=== PATIENT | female | born 1990 | race Caucasian/White ===

== ENCOUNTER 2016-08-30 16:32 | Emergency (ER) | payer BC ==
[~2016-08-30] VITALS: Ht 152.4 cm; Wt 52.1 kg
[2016-08-30 16:36] VITALS: TEMP 36.9; Ht 152.4 cm; Wt 52.1 kg
--- NOTE | 2016-08-30 17:02 | EMERGENCY ROOM VISIT NOTE ---
History Report prepared by Ruth: Kimberly Pleitez Under the Supervision of: Dr. Deshawn Whipple M.D. First contact with patient: 16:40 Chief Complaint: ED VAG BLEEDING Stated Complaint: 7 WEEK PREG, BLEEDING History of Present Illness The patient is a 26 year old female who presents to the Emergency Room with complaints of an episode of vaginal bleeding starting last night. She states that she is about seven weeks and has an OB-POWER REACTOR SUPERVISOR appointment scheduled in five days. She states that this is her second and she has a three year old at home. She states that she determined this from a home test , she has been experiencing nausea. She came to the ED today because she started a little vaginal bleeding with clots and when she called her OB-POWER REACTOR SUPERVISOR, they suggested she come in. She notes that a few weeks before getting , she had an IUD removed. The patient complains of light cramping. The patient denies any previous miscarriages. She notes that she has had mastitis in the past. Source of History: patient Onset: last night Position: other (vagina) Timing: other (episode) Associated Symptoms: + nausea Note: The patient complains of mild cramping. The patient denies any previous miscarriages. Review of Systems See HPI for pertinent positives & negatives. A total of 10 systems reviewed and were otherwise negative. Family History No pertinent family history Social History Smoking Status: Never Smoker Housing Status: lives with family Current/Historical Medications Scheduled Multivit/Min/Iron/Fol Ac/Pren ( Vitamin), 1 TAB PO DAILY Allergies Coded Allergies: No Known Allergies (Unverified , 08/30/16) Physical Exam Vital Signs Date Time Temp Pulse Resp B/P Pulse Ox O2 Delivery O2 Flow Rate FiO2 08/30/16 18:33 90 16 114/73 100 Room Air 08/30/16 16:36 36.9 111 18 127/80 100 Room Air Physical Exam GENERAL: Patient is in no acute distress. HEENT: No acute trauma, normocephalic atraumatic, mucous membranes moist, no nasal congestion, no scleral icterus. NECK: No stridor, no adenopathy, no meningismus, trachea is midline. LUNGS: Clear to auscultation bilaterally, no wheeze, no rhonchi, breath sounds equal. HEART: Without murmurs gallops or rubs, regular rate and rhythm. ABDOMEN: Soft, nontender, bowel sounds positive, no hernias, no peritonitis. EXTREMITIES: No cyanosis or edema, full range of motion of all the joints without pain or difficulty, no signs for acute trauma. NEUROLOGIC: Oriented x 3, no acute motor or sensory deficits, no focal weakness. SKIN: No rash, no jaundice, no diaphoresis. Medical Decision & Procedures ER Provider Diagnostic Interpretation: X ray results and stated below per my interpretation and radiologist interpretation. Other radiology results and stated below per my review and radiologist interpretation: Limited ultrasound LIMITED (US) CLINICAL HISTORY: EVALUATE OB-POWER REACTOR SUPERVISOR/VAGINAL BLEEDING bleeding TECHNIQUE: Ultrasound COMPARISON STUDY: None FINDINGS: Single, viable intrauterine . Estimated gestational age 7 weeks 5 days. A heartbeat is confirmed at 167 bpm. Small subchorionic bleed measuring 1.5 x 1.0 cm. Maternal cervix is closed. IMPRESSION: 1. Single, viable intrauterine of approximate 7 weeks 5 days gestational age. 2. Small subchorionic bleed. 3. The maternal cervix is closed. Electronically signed by: Jorge Luis Rendon M.D. 08/30/2016 6:30 PM Dictated Date/Time: 08/30/2016 6:29 PM Laboratory Results 08/30/16 16:56 Test 08/30/16 16:46 08/30/16 16:56 Urine Color YELLOW Urine Appearance CLEAR (CLEAR) Urine pH 6.5 (4.5-7.5) Urine Specific [place] 1.006 (1.000-1.030) Urine Protein NEG (NEG) Urine Glucose (UA) NEG (NEG) Urine Ketones NEG (NEG) Urine Occult Blood NEG (NEG) Urine Nitrite NEG (NEG) Urine Bilirubin NEG (NEG) Urine Urobilinogen NEG (NEG) Urine Leukocyte Esterase NEG (NEG) Red Blood Count 4.39 M/uL (4.2-5.4) Mean Corpuscular Volume 88.4 fL (80-100) Mean Corpuscular Hemoglobin 31.4 pg (25-34) Mean Corpuscular Hemoglobin Concent 35.6 g/dl (32-36) RDW Standard Deviation 37.8 fL (36.4-46.3) RDW Coefficient of Variation 11.8 % (11.5-14.5) Mean Platelet Volume 9.8 fL (7.4-10.4) Human Chorionic Gonadotropin, Quant 713872 mIU/mL Laboratory results reviewed by me. ED Course 1640: The patient was evaluated in room C11. A complete history and physical exam was performed. 183: I discussed the patient's exam findings and results. She decided she would like to use [facility] for OB-POWER REACTOR SUPERVISOR care. 1846: Discussed the patient's case with Dr. Kaye. He agrees that the patient is fine to go home. He notes she should have pelvic reset and follow up in the office. 185: Reevaluated the patient. Discussed results and discharge instructions: She verbalized understanding and agreement. The patient is ready for discharge. Medical Decision Differential Diagnoses include ectopic , vaginal bleeding in a normal , vaginal tear, miscarriage. There is no leukocytosis or concerning anemia. Quantitative beta hCG is elevated consistent with a several week . Blood type is O+, there is no need for RhoGAM. Urinalysis does not show evidence for infection. Pelvic ultrasound shows a healthy intrauterine , a subchorionic bleed was noted. The patient is having minimal vaginal bleeding and no pain. I did discuss the case with the on-call OB doctor. There is no need for a pelvic exam. Follow- up in the office in a few days was suggested. The patient was told to avoid sex and to practice pelvic rest. She will return for heavier bleeding or severe pain. Consults Time Called: 1840 Consulting Physician: Dr. Boo Kaye Returned Call: 184 Discussed the patient's case with Dr. Kaye. He agrees that the patient is fine to go home. He notes she should have pelvic reset and follow up in the office. Impression Primary Impression: Additional Impressions: Vaginal bleeding Subchorionic hemorrhage Scribe Attestation The scribe's documentation has been prepared under my direction and personally reviewed by me in its entirety. I confirm that the note above accurately reflects all work, treatment, procedures, and medical decision making performed by me. Departure Information Dispostion Home / Self-Care Referrals No Doctor, Assigned (PCP) Forms HOME CARE DOCUMENTATION FORM, IMPORTANT VISIT INFORMATION, WORK / SCHOOL INSTRUCTIONS Patient Instructions [facility] Additional Instructions pelvic rest no sex or lifting call and set up reference library assistant followup appt return for worsening pain or heavy bleeding Problem Qualifiers
[2016-08-30 17:13] LABS: HEMATOCRIT 38.8 % (37-47); MEAN CELL VOLUME 88.4 fL (80-100); MEAN CORPUSCULAR HEMOGLOBIN 31.4 pg (25-34); MEAN CORPUSCULAR HGB CONC 35.6 g/dl (32-36); MEAN PLATELET VOLUME 9.8 fL (7.4-10.4); PLATELET COUNT 247 K/uL (130-400); RED BLOOD COUNT 4.39 M/uL (4.2-5.4); WHITE BLOOD COUNT 8.31 K/uL (4.8-10.8)
[2016-08-30] MEDS ORDERED: PRENTAB26 PO (17:14)
[2016-08-30 17:17] LABS: URINE APPEARANCE CLEAR (CLEAR); URINE BILIRUBIN NEG (NEG); URINE COLOR YELLOW; URINE NITRITE NEG (NEG); URINE PH 6.5 (4.5-7.5); URINE SPECIFIC GRAVITY 1.006 (1.000-1.030); UROBILINOGEN NEG (NEG); ZZUR CULT IF INDIC CLEAN CATCH NO
[2016-08-30 17:28] LABS: MANUAL MICROSCOPIC REQUIRED? NO; REVIEW REQ? NO
--- NOTE | 2016-08-30 18:32 | DIAGNOSTIC IMAGING REPORT ---
Limited ultrasound LIMITED (US) CLINICAL HISTORY: EVALUATE OB-NURSING CLERK/VAGINAL BLEEDING bleeding TECHNIQUE: Ultrasound COMPARISON STUDY: None FINDINGS: Single, viable intrauterine . Estimated gestational age 7 weeks 5 days. A heartbeat is confirmed at 167 bpm. Small subchorionic bleed measuring 1.5 x 1.0 cm. Maternal cervix is closed. IMPRESSION: 1. Single, viable intrauterine of approximate 7 weeks 5 days gestational age. 2. Small subchorionic bleed. 3. The maternal cervix is closed. Electronically signed by: Jorge Luis Rendon M.D. 08/30/2016 6:30 PM Dictated Date/Time: 08/30/2016 6:29 PM
[2016-08-30 18:33] VITALS: BP 114/73; PULSE 90; O2SAT 100
--- NOTE | 2016-08-31 08:47 | DIAGNOSTIC IMAGING REPORT ---
Limited ultrasound LIMITED (US) CLINICAL HISTORY: EVALUATE OB-WRAPPER CASER/VAGINAL BLEEDING bleeding TECHNIQUE: Ultrasound COMPARISON STUDY: None FINDINGS: Single, viable intrauterine . Estimated gestational age 7 weeks 5 days. A heartbeat is confirmed at 167 bpm. Small subchorionic bleed measuring 1.5 x 1.0 cm. Maternal cervix is closed. IMPRESSION: 1. Single, viable intrauterine of approximate 7 weeks 5 days gestational age. 2. Small subchorionic bleed. 3. The maternal cervix is closed. Electronically signed by: Jorge Luis Rendon M.D. 08/30/2016 6:30 PM Dictated Date/Time: 08/30/2016 6:29 PM
== END 2016-08-30 19:04 | disposition home or self-care (01) ==
LOC: C.EDB 16:33 → C.EDC 19:04
DX: O20.8 Other hemorrhage in early pregnancy (principal)

== ENCOUNTER 2017-04-15 21:53 | Inpatient (IN) | payer BC ==
[~2017-04-15] VITALS: Ht 152.4 cm; Wt 65.0 kg
[~2017-04-15 21:53] MED LIST: PRENTAB26 PO
[2017-04-15] MEDS ORDERED: LACTATED RINGER'S 1000ML 1,000 ML IV PRN (22:33)
[2017-04-15] MEDS ORDERED: D5W AND LACTATED RINGERS 1,000 ML IV SCH (22:45)
[2017-04-15] MEDS ORDERED: LACTATED RINGER'S 1000ML 500 ML IV PRN (22:49)
[2017-04-15 22:58] LABS: HEMATOCRIT 31.1 % (37-47); MEAN CELL VOLUME 92.3 fL (80-100); MEAN CORPUSCULAR HEMOGLOBIN 32.3 pg (25-34); MEAN PLATELET VOLUME 10.5 fL (7.4-10.4); PLATELET COUNT 143 K/uL (130-400); RED BLOOD COUNT 3.37 M/uL (4.2-5.4); WHITE BLOOD COUNT 10.53 K/uL (4.8-10.8)
[2017-04-15] MEDS ORDERED: OXYTOCIN 30 UNITS/500ML NSS IV PRN (23:00)
[2017-04-15 23:01] VITALS: Ht 152.4 cm; Wt 65.0 kg
[2017-04-15 23:21] LABS: INR 0.9 (0.9-1.1); PARTIAL THROMBOPLASTIN RATIO 0.9; PROTHROMBIN TIME (PATIENT) 9.3 SECONDS (9.0-12.0)
[2017-04-16] MEDS ORDERED: EpHEDrine SULFATE INJ 50 MG/ML AMP ONE (03:51)
[2017-04-16] MEDS ORDERED: BUPIVACAINE 0.25% 30 ML VIAL ONE (03:51)
[2017-04-16] MEDS ORDERED: FENTANYL 2MCG/ML ROPIV 1.25MG/ML 100ML BAG EPI ONE (03:52)
[2017-04-16] MEDS ORDERED: FENTANYL CITRATE INJ 50 MCG/1 ML 2 ML VIAL ONE (03:52)
[2017-04-16] MEDS ORDERED: LACTATED RINGER'S 1000ML 500 ML IV PRN ×2 (04:55→10:57)
[2017-04-16] MEDS ORDERED: NALOXONE HCL INJ 1 MG in SODIUM CHLORIDE 0.9% 1000ML 1,000 ML IV PRN ×4 (04:55)
[2017-04-16] MEDS ORDERED: ONDANSETRON INJ 2 MG/ML 2 ML VIAL IV PRN (05:00)
[2017-04-16] MEDS ORDERED: DiphenhydrAMINE HCL 50 MG/ML VIAL IV PRN (05:00)
[2017-04-16] MEDS ORDERED: PROMETHAZINE HCL INJ 25 MG in SODIUM CHLORIDE 0.9% 50ML 50 ML IV PRN (05:00)
[2017-04-16] MEDS ORDERED: NALBUPHINE HCL INJ 10 MG/ML AMP IV PRN (05:00)
[2017-04-16] MEDS ORDERED: NALOXONE HCL INJ 0.4 MG/1 ML VIAL/CARP IV PRN (05:00)
[2017-04-16] MEDS ORDERED: EpHEDrine SULFATE INJ 50 MG/ML AMP IV PRN (05:00)
[2017-04-16] MEDS: FENTANYL 2MCG/ML ROPIV 1.25MG/ML 100ML BAG EPI PRN ×2 (07:09→12:26)
[2017-04-16] MEDS ORDERED: OXYTOCIN 30 UNITS/500ML NSS IV PRN ×2 (11:00→14:45)
[2017-04-16] MEDS ORDERED: OXYCODONE/ACETAMINOPHEN 5-325 TAB PO PRN (14:45)
[2017-04-16] MEDS ORDERED: ACETAMINOPHEN/CODEINE 300/30MG TAB PO PRN ×2 (14:45)
[2017-04-16] MEDS ORDERED: HYDROCORTISONE ACETATE 25 MG SUPP PR PRN (14:45)
[2017-04-16] MEDS ORDERED: LANOLIN OINT EXT PRN ×2 (14:45)
[2017-04-16] MEDS ORDERED: SUPERCREAM 0.870 % 15GM JAR EXT PRN (14:45)
[2017-04-16] MEDS ORDERED: BENZOCAINE 20% AER SPR 82.5 GM CAN EXT PRN (14:45)
--- NOTE | 2017-04-16 14:55 | DELIVERY SUMMARY ---
DATE OF OPERATION: 04/16/2017 DELIVERY NOTE The patient delivered a live female in left occiput anterior presentation. There was loose nuchal cord which was easily reduced. There was also body cord around the left leg. was delivered and placed on mother's abdomen. It was known that the patient had meconium. Pediatrics was present at delivery. Cord gas was obtained as well as cord blood. The baby's weight is pending. Apgars 8 and 9. Placenta was spontaneously delivered. Inspection of the placenta showed stained placenta. Inspection of the perineum showed no lacerations or tears. There is good hemostasis. Estimated blood loss is 400 mL. Baby and mother are doing well in recovery. All instruments are removed from the vagina and accounted for x2 including retractors and sponges. I attest to the content of the Intraoperative Record and any orders documented therein. Any exception s are noted below.
--- NOTE | 2017-04-16 15:32 | Anesthesia Procedure Note ---
Anesthesia Epidural Removal Nt Date & Time Apr 16, 2017 at 15:31 Vital Signs Pain Intensity: 7.0 Notes Mental Status: alert / awake / arousable, participated in evaluation Nausea / Vomiting: adequately controlled Pain: adequately controlled Airway Patency, RR, SpO2: stable & adequate BP & HR: stable & adequate Hydration State: stable & adequate Neuraxial Anesthesia: was administered Anesthetic Complications: no major complications apparent, pt satisfied with anesthetic care Epidural: removed without complications, with tip intact
[2017-04-16] MEDS: IBUPROFEN 600 MG TAB PO PRN ×2 (17:43→22:41)
[2017-04-16 17:45] VITALS: BP 107/73; PULSE 102; TEMP 36.7
[2017-04-16 19:15] VITALS: BP 102/65; PULSE 81; TEMP 36.7; O2SAT 97
[2017-04-16] MEDS: DOCUSATE SODIUM 100 MG CAP PO SCH (19:26)
[2017-04-16] MEDS: ACETAMINOPHEN 325 MG TAB PO PRN (19:27)
[2017-04-16 23:50] VITALS: BP 99/57; PULSE 76; TEMP 36.7; O2SAT 98
[2017-04-17 04:35] VITALS: BP 101/60; PULSE 82; TEMP 36.6; O2SAT 98
[2017-04-17] MEDS: IBUPROFEN 600 MG TAB PO PRN ×2 (04:37→12:23)
[2017-04-17 07:45] VITALS: BP 104/73; PULSE 84; TEMP 36.5; O2SAT 98
[2017-04-17] MEDS: DOCUSATE SODIUM 100 MG CAP PO SCH (07:45)
[2017-04-17] MEDS: ACETAMINOPHEN 325 MG TAB PO PRN (07:46)
[2017-04-17] MEDS ORDERED: FERROUS SULFATE 325 MG TAB PO SCH (08:00)
[2017-04-17] MEDS ORDERED: PRENATAL VITAMIN TAB PO SCH (08:00)
--- NOTE | 2017-04-17 08:23 | OB/GYN Progress Note ---
SHIPPING SUPPORT CLERK Progress Note Date of Service: Apr 17, 2017. Patient is seen and examined. She feels well, no complaints. Likes to be discharged today Ambulating without dizziness Voiding without difficulty Tolerating regular diet with out N&V Bleeding is minimal No fever/ chills/ CP/ SOB/ N&V/ Leg pain Breast feeding without problems Date Time Temp Pulse Resp B/P (MAP) Pulse Ox O2 Delivery O2 Flow Rate FiO2 04/17/17 07:45 36.5 84 20 104/73 (83) 98 Room Air 04/17/17 04:35 36.6 82 16 101/60 (74) 98 Room Air 04/16/17 23:50 36.7 76 16 99/57 (71) 98 Room Air 04/16/17 23:50 Room Air 04/16/17 19:15 36.7 81 18 102/65 (77) 97 Room Air 04/16/17 17:45 36.7 102 18 107/73 (84) Room Air 04/16/17 17:45 Room Air Last 24 Hours Test 04/17/17 08:11 PE: General: Alert, orientedx3, NAD Abd: soft, NT, fundus firm, below Umbilicus Perineum intact, Lochia rubra minimal Ext; NT, no edema AP: 26 yo s/p , ppd# 1 VSS Afebrile doing well, desires d/c today will check h&h Continue routine care All questions were answered Instructions were given when to call D/C home after 24 hours
--- NOTE | 2017-04-17 08:24 | Discharge Instructions ---
Discharge Instructions Date of Service Apr 17, 2017. Admission Reason for Admission: Check Rupture Discharge Discharge Diagnosis / Problem: Discharge Goals Goal(s): Routine recovery after delivery Medications Continue Dispensed Medications: lansinoh Activity Recommendations Activity Limitations: as noted below ACTIVITY RECOMMENDATIONS: * Gradual return to full activity over the next 2-3 weeks. * No lifting - nothing heavier than baby over the next 2-3 weeks. * Do not engage in vigorous exercise, sexual activity or sports until cleared by your physician. * Do not drive or operate any motorized equipment until cleared by your physician. * You may shower/bathe daily. BREAST CARE: If you are not breast feeding: * Wear a supportive bra 24 hours a day for one to two weeks. * Avoid stimulating your breasts and nipples as much as possible during the first few weeks after delivery. * When taking a shower, have the warm water hit your back, not breasts. * When your breasts feel full, apply ice packs. Usually three to four times a day helps ease the discomfort. * Take a mild pain medication (Tylenol/Motrin) when you are uncomfortable. If breast feeding: * Use breast milk to lubricate nipples. Lansinoh cream may be used for sore nipples. You do not need to remove cream prior to breast feeding. If using a different brand of cream, check the label for directions regarding removal of cream prior to nursing. * Wear a supportive bra. * If having problems with breasts or breast feeding, call a remediation bioanalytics consultant or your health care provider. EPISIOTOMY CARE: After delivery, if you have an episiotomy (stitches), the following steps will ease discomfort and aid healing. * For the first 24 hours after delivery, place ice packs next to your episiotomy to help reduce swelling. * After the first 24 hour-period, sitz baths, either portable or in the tub, are suggested. A shower with a shower arm sprayed over the episiotomy may be comforting. * Deepali care should be done after each voiding and bowel movement. Squirt warm water from a plastic bottle over the perineum (region of the body between the anus and urinary opening) and pat dry. * Use Dermoplast to ease discomfort. Shake container. [place] directly over the episiotomy. * Place a Tucks on a clean sanitary pad next to your episiotomy. OVER THE COUNTER MEDICATION: * For discomfort or pain, you may use Acetaminophen (Tylenol), Ibuprofen (Advil ), or Naproxen (Aleve) following the package directions. * For constipation you may use Colace following the package directions. SPECIAL CARE INSTRUCTIONS: When you are discharged from the hospital, it is important for you to follow the instructions listed below: * During the first week at home, you should be able to care for yourself and your baby. In addition, the usual light household activities are encouraged. * Limit your activities to the way you feel. Do not try to clean the house or move furniture. Be sensible. * If you actively engage in sports and have done so up until the time of your delivery, you may resume these activities as soon as you feel able. This may take up to one month or even longer. Use good judgment. * Continue to take your vitamins for at least six weeks after the of your baby. * Your diet need not be limited unless you were on a special diet before your delivery. Breast-feeding mothers need around 2500 calories per day and at least 64-80 ounces of fluid per day (8 to 10 glasses). * You should eat foods from the four major food groups. Crash diets or fad diets are to be avoided. Eating lean meats, fresh fruits and vegetables, low-fat dairy products, high fiber foods and a regular exercise program, will help you get back to your pre- weight without putting your health at risk. * Constipation is sometimes a problem after delivery. Take a mild laxative as needed. If breast feeding, Milk of Magnesia is acceptable to use. You may use a suppository or Fleets enema if no episiotomy. * A daily shower or tub bath is suggested. Be sure to thoroughly and gently dry the perineum. * A bloody vaginal discharge will usually continue until around four weeks post . A small amount of bleeding may continue for as long as six weeks. Vaginal discharge changes from the bright red bleeding after delivery to pink then brownish and finally yellowish-pink before becoming white and disappearing. * Bleeding may increase with activity. Your first period may come in 4-8 weeks. If you are breast feeding, your period may be delayed even longer. * [employer] (sex) can begin whenever both you and your partner feel comfortable and do not have any form of genital infection. It is recommended that you wait until after your return appointment and discuss with your physician. If you have questions, please talk to your health care practitioner. A condom should be used to prevent infection and . * Foreplay, gentle intercourse and lubrication is very important the first several times to prevent pain. A water-based lubricant such as K-Y jelly or Astroglide may be used. * Tampons may be used six weeks after delivery. * Douching should be avoided for 6 weeks after delivery. * If you have RH negative blood and your baby is RH positive, you will receive RHOGAM by injection prior to discharge. The nurse will give you a card to keep with you that has the date and place that you received RHOGAM after delivery. * During your care, you had a Rubella screen done to check for the presence of rubella antibodies in your blood. If your test was negative, you will receive a Rubella vaccine prior to discharge. This vaccine may cause a fever, soreness at the injection site and flu-like symptoms. If these symptoms persist, notify your health care practitioner. is not advised for three months after a Rubella vaccine. There is a higher chance of having a baby with defects if conceived within three months of getting the vaccine. * If you were discharged 24 hours from delivery or before 48 hours: Visiting nurses will come to your home 48 hours after discharge to assess you and your baby. The visiting nurse will meet with you while you are in the hospital to arrange a time and get directions to your home. * Verbalizes understanding of car seat law as reviewed with patient nursing. * Car Seat hand-out given and reviewed with patient by nursing. * Shaken baby information reviewed with patient by nursing. Call you doctor if: * Heavy bleeding (saturating several pads an hour) or passing clots the size of your fist. * A fever >101 degrees F (38.3 degrees C) on two occasions four hours apart and/or chills. * Unusual pain in the pelvic or vaginal areas. * "Baby Blues" lasting longer than two weeks. If you have any questions or concerns, call your health care practitioner at . FOLLOW-UP VISIT: * Please call the office at to schedule a 6 week examination. It is important you keep this appointment. * It is important for you to make arrangements for either yearly or twice yearly check-ups thereafter. . Current Hospital Diet Patient's current hospital diet: Regular OB Diet Discharge Diet Recommended Diet: Regular Diet Pending Studies Studies pending at discharge: no Medical Emergencies . Who to Call and When: Medical Emergencies: If at any time you feel your situation is an emergency, please call 911 immediately. . Non-Emergent Contact Non-Emergency issues call your: Specialist Call Non-Emergent contact if: temperature is above 100.5, your pain is not controlled, your pain is worsening, you have any medication questions . . "Provider Documentation" section prepared by Pascale Kearney. . VTE Core Measure Inpt VTE Proph given/why not?: Treatment not indicated
[2017-04-17 08:45] LABS: HEMATOCRIT 30.6 % (37-47)
[2017-04-17 11:18] VITALS: BP 99/56; PULSE 82; TEMP 36.6; O2SAT 97
[2017-04-17 16:00] VITALS: BP_DIAS 56; PULSE 82; TEMP 36.6
[2017-04-17] MEDS ORDERED: BISACODYL 5 MG TABEC PO SCH (20:00)
[2017-04-18] MEDS ORDERED: BISACODYL 10 MG SUPP PR PRN (07:00)
== END 2017-04-17 16:07 | disposition home or self-care (01) | DRG 775 ==
LOC: C.OPB 21:53 → C.LD 21:53 → C.OPB 22:36 → C.OBG 04-16 17:34
PROVIDERS: ADMIT Obstetrics & Gynecology; ATTEND Obstetrics & Gynecology
PROC: 10E0XZZ Delivery of Products of Conception, External Approach (ICD-10-PCS; principal; 2017-04-16)
DX: O48.0 Post-term pregnancy (principal); Z3A.40 40 weeks gestation of pregnancy; O69.82X0 Labor and delivery complicated by other cord entanglement, without compression, not applicable or unspecified; O77.0 Labor and delivery complicated by meconium in amniotic fluid; Z37.0 Single live birth

== ENCOUNTER 2020-12-29 05:19 | Inpatient (IN) ==
--- NOTE | 2020-12-27 14:49 | Anesthesiology Consultation ---
Date of Service December 27, 2020 Assessment & Plan (1) Encounter for pre-operative examination: Chart Review Chart Review: Acceptable Risk for Surgery and Patient NOT seen in Pre Admission Testing Consults Requested none History Surgery Operation Date: 12/30/20 09:00 Proposed Procedures p Section in LD - Alek Kamara MD Height/Weight Height: 5 ft Weight: 63.503 kg Allergies Allergy/AdvReac Type Severity Reaction Status Date / Time codeine AdvReac Mild nausea/vomi Verified 12/27/20 08:07 tting Medications Home Medications Medication Instructions Recorded Confirmed Last Taken [id number]-tgh-Ct-[id number] 1 mg 1 tab PO QAM 12/27/20 12/27/20 Unknown tablet Past Medical History Medical History Asthma as child no problems since age 13 In vitro fertilization surrogate -- baby is breech and she is not sure who will be in room. it may be both fathers or one father. Past Surgical History Surgical History History of lumpectomy of right breast Social History Smoking Status: Never smoker Do You Dip or Chew Tobacco: No Hx Alcohol Use: No Hx Substance Use: No substance use type: does not use
[2020-12-29] MEDS ORDERED: AZITHROMYCIN 500 MG in DEXTROSE 5% 250 ML IV STA (05:43)
--- NOTE | 2020-12-29 05:58 | History & Physical Report ---
Date of Service December 29, 2020 Assessment & Plan (1) Spontaneous rupture of amniotic membranes: Plan: 30-year-old -0-0-2 at 39 weeks of gestation, breech presentation, spontaneous rupture of membranes, active labor, Vital signs stable afebrile, GBS positive, Plan to admit, IV fluids, CBC and primary . Patient understand the risks and benefits and signed an informed consent. All questions were answered. (2) Labor presentation, breech: (3) Active labor at term: Admission and Anticipated Discharge Date Admission Date: December 29, 2020 History of Present Illness Chief Complaint: Leaking and contractions Primary Care Provider: NO PCP Patient is a 30-year-old -0-0-2 at 39 weeks of gestation who was originally scheduled for primary for breech presentation today. She woke up at 2:30 AM with contractions they got more regular and painful and then she felt small gush of fluid in the bathroom around 4:30 AM. Contraction get more regular and painful and she presented to labor and delivery. She denies vaginal bleeding, fever chills, nausea vomiting, headaches, change in her vision, Covid symptoms. She reports good movements. Her has been complicated by, 1 IVF , surrogate , 2 breech presentation, 3 GBS positive Allergies Allergy/AdvReac Type Severity Reaction Status Date / Time codeine AdvReac Mild nausea/vomi Verified 12/27/20 08:07 tting Home Medications Medication Instructions Recorded Confirmed Type eksioqbl-gor-Ly-FA 1 mg 1 tab PO QAM 12/27/20 12/27/20 History tablet Patient History Medical History Asthma as child no problems since age 13 In vitro fertilization surrogate -- baby is breech and she is not sure who will be in room. it may be both fathers or one father. Surgical History History of lumpectomy of right breast Social History Smoking Status: Never smoker Second Hand Exposure: No; Do You Dip or Chew Tobacco: No; Tobacco Cessation Education Requested by Patient: No Hx Alcohol Use: No Hx Substance Use: No Preferred Language: [place] Communication Ability: Effective Lining [place]er Required: No Beliefs That Will Affect Care: None Current Living Situation: Spouse and Family Other Information That Helps Us Care for You: No Feels Safe at Home: Yes Safety Concerns: Feels Safe At This Time Assistive Devices: None OB History 2 full-term 's in 2013 and 2017, no complications WINDOW CLEANER History No history of STDs, no history of chlamydia, gonorrhea nor genital herpes Review of Systems as per Subjective / HPI Physical Exam Constitutional: well developed, + acute distress (With contractions) and + thin Gastrointestinal (Abdomen): Inspection/Auscultation: abdomen normal to inspection and + abdomen distended (Gravid) Bedside ultrasound is confirmed by myself, breech presentation, heart rate 150s Genitourinary: normal external appearance OB Exam Abdomen: + breech Manual OB Exam: + cervical dilation 3 cm, + cervical effacement 80%, + station - 2 and + amniotic fluid clear and nitrazine positive (Speculum exam was done gross rupture was seen) OB Exam Monitor Tracing: + external uterine monitor used and + category I Results & Data ([facility]) Vital Signs (Past 12 Hours) Vital Signs Pulse BP 12/29/20 05:26 78 130/88 Code Status & VTE Plan VTE Prophylaxis Plan VTE Prophylaxis will be ordered: No
[2020-12-29] MEDS ORDERED: CITRIC ACID/SODIUM CITRATE 15 ML UDC PO SCH (06:00)
[2020-12-29] MEDS ORDERED: ceFAZolin 2,000 MG in SYRINGE 0 ML IV SCH (06:00)
[2020-12-29] MEDS ORDERED: LACTATED RINGER'S 1,000 ML IV SCH ×2 (06:00→08:15)
[2020-12-29] MEDS ORDERED: MoRPHine SULFATE PF 1 MG/ML 10 ML AMP/VIAL ONE (06:10)
[2020-12-29] MEDS ORDERED: fentaNYL citrate 100 MCG/2 ML VIAL ONE (06:10)
[2020-12-29] MEDS ORDERED: OXYTOCIN 10 UNITS/ML VIAL ONE (06:10)
[2020-12-29 06:31] LABS: Basophils # (auto) 0.01 K/uL (0-0.2); Basophils % (auto) 0.1 %; Eosinophils # (auto) 0.02 K/uL (0-0.5); Eosinophils % (auto) 0.2 %; Hematocrit (blood only) 37.4 % (37-47); Hemoglobin 12.9 g/dL (12.0-16.0); Immature Granulocytes # (auto) 0.04 K/uL (0.00-0.02); Immature Granulocytes % (auto) 0.4 %; Lymphocytes # (auto) 1.52 K/uL (1.2-3.4); Lymphocytes % (auto) 14.6 %; Mean Corpuscular Hemoglobin 31.2 pg (25-34); Mean Corpuscular Volume 90.3 fL (80-100); Mean Platelet Volume 10.6 fL (7.4-10.4); Monocytes # (auto) 0.64 K/uL (0.11-0.59); Monocytes % (auto) 6.2 %; Neutrophils # (auto) 8.15 K/uL (1.4-6.5); Neutrophils % (auto) 78.5 %; Platelet Count 241 K/uL (130-400); RDW Coefficient of Variation 12.1 % (11.5-14.5); RDW Standard Deviation 39.3 fL (36.4-46.3); Red Blood Count 4.14 M/uL (4.2-5.4); White Blood Count 10.38 K/uL (4.8-10.8)
[2020-12-29 06:32] LABS: Mean Corpuscular Hgb Conc 34.5 g/dL (32-36)
[2020-12-29] MEDS ORDERED: PHENYLEPHRINE 100MCG/ML 5ML SYR ONE (07:03)
[2020-12-29] MEDS ORDERED: NALOXONE HCL 0.08 MG in SYRINGE 1.8 ML IV PRN (07:04)
[2020-12-29] MEDS ORDERED: NALOXONE HCL 0.4 MG/1 ML VIAL/CARP IV PRN (07:04)
[2020-12-29] MEDS ORDERED: ePHEDrine sulfate 50 MG/ML AMP IV PRN (07:04)
[2020-12-29] MEDS ORDERED: ONDANSETRON INJ 2 MG/ML 2 ML VIAL IV PRN (07:04)
[2020-12-29] MEDS ORDERED: NALOXONE HCL 1 MG in SODIUM CHLORIDE 0.9% 1000ML 1,000 ML IV PRN (07:04)
[2020-12-29] MEDS ORDERED: LACTATED RINGER'S 500 ML IV PRN (07:04)
[2020-12-29] MEDS ORDERED: NALBUPHINE HCL INJ 10 MG/ML AMP IV PRN (07:04)
[2020-12-29] MEDS ORDERED: MoRPHine SULFATE PF 1 MG/ML 10 ML AMP/VIAL INT SPINAL ONE (07:04)
[2020-12-29] MEDS ORDERED: diphenhydrAMINE 50 MG/ML VIAL IV PRN (07:04)
[2020-12-29] MEDS ORDERED: NO NARCOTICS OR SEDATIVES SCH (07:15)
[2020-12-29] MEDS ORDERED: SODIUM CHLORIDE 0.9% 1000ML 1,000 ML IV SCH (07:15)
[2020-12-29] MEDS ORDERED: ONDANSETRON INJ 2 MG/ML 2 ML VIAL ONE (07:27)
--- NOTE | 2020-12-29 08:10 | Anesthesiology Progress Note ---
Date of Service December 29, 2020 Anesthesia Post Procedure Vital Signs Vital Signs: Temp Pulse Resp BP Pulse Ox 12/29/20 08:04 81 100 12/29/20 08:03 81 115/66 12/29/20 06:18 36.6 C 12/29/20 05:56 18 12/29/20 05:34 18 12/29/20 05:26 78 130/88 Transfer of Care Handoff Completed per policy Notes Mental Status: alert / awake / arousable Nausea / Vomiting: adequately controlled Pain: adequately controlled Airway Patency, RR, SpO2: stable & adequate BP & HR: stable & adequate Hydration State: stable & adequate Neuraxial Anesthesia: was administered and sensory block is resolving Anesthetic Complications: no major complications apparent
[2020-12-29] MEDS ORDERED: DIPHTHERIA/TETANUS/PERTUSSIS 0.5 ML SYR/VIAL IM ONE (08:15)
[2020-12-29] MEDS ORDERED: SUPERCREAM 0.870% 15 GM JAR EXT PRN (08:15)
[2020-12-29] MEDS ORDERED: SENNA 8.6 MG TAB PO PRN (08:15)
[2020-12-29] MEDS ORDERED: HYDROCORTISONE ACETATE 25 MG SUPP PR PRN (08:15)
[2020-12-29] MEDS ORDERED: MAGNESIUM HYDROXIDE SUSP 30 ML UDC PO PRN (08:15)
[2020-12-29] MEDS ORDERED: MEASLES, MUMPS & RUBELLA VIRUS VIAL SQ ONE (08:15)
[2020-12-29] MEDS ORDERED: BENZOCAINE 20% AER SPR 82.5 GM CAN EXT PRN (08:15)
--- NOTE | 2020-12-29 08:15 | Post Operative Brief Note ---
Immediate Post Op Note v1 Date of Surgery December 29, 2020 Pre & Post Diagnosis Operation Date: 12/29/20 08:15 <No data on this case meets the specified criteria> Breech presentation, SROM, in labor I identified the patient and participated in the time-out.: Yes Procedure Operation Date: 12/29/20 08:15 <No data on this case meets the specified criteria> Primary Csection Surgeon Pascale Kearney MD Sewing Machine Operator Plastic Zipper CAL Reeves Estimated Blood Loss 500 Findings Consistent with Post-Op Diagnosis Anesthesia Type Spinal Complications none
[2020-12-29] MEDS: KETOROLAC 30 MG/ML VIAL IV PRN ×2 (08:17→16:10)
[2020-12-29 08:47] LABS: Base Excess Cord Arterial Bld 4.2 mEq/L (-9-1.8); CO2 Cord Arterial Blood 38 mmHg (39.1-73.5); HCO3 Cord Arterial Blood 28 mmol/L (19.7-28.5); PO2 Cord Arterial Blood 123 mmHg (4.1-31.7); pH Cord Arterial Blood 7.48 (7.1-7.38)
[2020-12-29 08:48] LABS: Oxygen Sat Cord Arterial Blood < 60.0 % (<60)
[2020-12-29] MEDS: OXYTOCIN 20 UNITS in LACTATED RINGER'S 1,000 ML IV SCH ×2 (09:51→17:46)
--- NOTE | 2020-12-29 10:19 | Operative Report (OR) ---
DATE OF SURGERY: 12/29/2020 PREOPERATIVE DIAGNOSES: The patient is a 30-year-old 3, para 2-0-0-2, at 39 weeks of gestation, presenting to labor and delivery with spontaneous rupture of membrane, contractions, in labor and breech presentation. POSTOPERATIVE DIAGNOSES: The patient is a 30-year-old 3, para 2-0-0-2, at 39 weeks of gestation, presenting to labor and delivery with spontaneous rupture of membrane, contractions, in labor and breech presentation. PROCEDURE: Primary low transverse with Pfannenstiel skin incision and delivery of breech . SURGEON: Pascale Kearney MD. GARMENT FINISHER: CAL Reeves. ESTIMATED BLOOD LOSS: 500 mL. DRAIN: Moore 100 ml clear urine. ANESTHESIA: Spinal. ANESTHESIOLOGIST: Dr. Galindo. COMPLICATIONS: None. FINDINGS: Baby was a viable female delivered in lucinda breech position. Apgars were 8/9, weight is 2968 gr. Maternal findings: Normal uterus, fallopian tubes, and ovaries. DESCRIPTION OF PROCEDURE: The patient was taken to the operating room where spinal anesthesia was given without difficulty. She was placed in dorsal supine position with a leftward tilt. She was prepared and draped in the usual sterile fashion. Pfannenstiel skin incision was made and carried through to the underlying layer of fascia with the Bovie. Fascia was incised in the midline and incision was extended laterally with the help of Prado scissors. Lower aspect of the fascial incision was grasped with 2 Farzaneh clamps, elevated and the underlying rectus muscles were dissected off sharply with Prado scissors. Upper aspect of the fascial incision was then grasped with 2 Farzaneh clamps, elevated and the underlying rectus muscles were dissected off sharply with Prado scissors. Rectus muscles were in the midline. Peritoneum was entered bluntly with fingers. Peritoneal incision was extended superiorly and inferiorly with good visualization of the bladder. A bladder blade was inserted. Vesicouterine peritoneum was identified, grasped with pickups, entered sharply with Metzenbaum scissors. Bladder flap was created digitally and bladder blade was reinserted. Lower uterine segment was incised in a transverse fashion. Incision was extended laterally with the help of fingers. Membranes were ruptured. Clear fluid was obtained and the baby's buttocks were delivered and then legs and then body and arms in flexion position and then head without difficulty. Mouth and nose were suctioned. Cord was clamped x2 and cut. Baby was handed off to the waiting pediatric team. Cord blood was obtained and then cord blood was collected in a special collection bag per patient request. Placenta was delivered manually as intact and complete. Uterus was exteriorized and cleared of all clots and debris. The uterine incision was repaired with 0 Vicryl in a running locked fashion. Second imbricating layer was placed with 0 Vicryl in a running locked fashion. Excellent hemostasis was achieved. Uterus was returned to the abdomen. Pelvis was irrigated using warm normal saline and suctioned. Incision was checked to be hemostatic. Parietal peritoneum was reapproximated with 3-0 Vicryl in a running fashion. The muscle layer was reapproximated with the same suture in a running fashion. The muscle layer and under the fascia were hemostatic. Rectus fascia was reapproximated with 0 Vicryl in a running fashion. Subcuticular fat tissue was brought together with 3-0 Vicryl in a running fashion. Skin was closed with 4-0 Monocryl in a subcuticular fashion. The patient tolerated the procedure well. Sponge, lap, and needle count was correct x3. No complications happened. I was present during the whole procedure. She received 2 grams of cefazolin before surgery and she also received azithromycin during surgery. Job ID: [id number] [facility]
[2020-12-29] MEDS: MEPERIDINE HCL 25 MG/ML CARP/VIAL IV PRN ×2 (10:46→21:23)
[2020-12-29] MEDS: SIMETHICONE 80 MG CHEW PO SCH ×3 (15:52→21:42)
[2020-12-29] MEDS: DOCUSATE SODIUM 100 MG CAP PO SCH (21:42)
[2020-12-30] MEDS ORDERED: DC INTRASPINAL MORPHINE ONE (01:04)
[2020-12-30] MEDS ORDERED: diphenhydrAMINE Capsule 25 MG CAP PO PRN (01:05)
[2020-12-30] MEDS ORDERED: KETOROLAC 30 MG/ML VIAL IV PRN (01:05)
[2020-12-30] MEDS ORDERED: PROMETHAZINE HCL 25 MG in SODIUM CHLORIDE 0.9% 50 ML IV PRN (01:05)
[2020-12-30] MEDS ORDERED: MEPERIDINE HCL 50 MG/ML CARP IV PRN (01:05)
[2020-12-30] MEDS ORDERED: ONDANSETRON INJ 2 MG/ML 2 ML VIAL IV PRN (01:05)
[2020-12-30] MEDS ORDERED: diphenhydrAMINE 50 MG/ML VIAL IV PRN (01:05)
[2020-12-30] MEDS: oxyCODONE/ACETAMINOPHEN 5mg/325mg TAB PO PRN ×5 (06:33→22:20)
[2020-12-30] MEDS: IBUPROFEN 600 MG TAB PO PRN ×4 (06:33→22:20)
[2020-12-30 06:37] LABS: Eosinophils # (auto) 0.01 K/uL (0-0.5); Eosinophils % (auto) 0.1 %; Hematocrit (blood only) 30.3 % (37-47); Hemoglobin 10.1 g/dL (12.0-16.0); Immature Granulocytes # (auto) 0.03 K/uL (0.00-0.02); Immature Granulocytes % (auto) 0.4 %; Lymphocytes # (auto) 0.54 K/uL (1.2-3.4); Lymphocytes % (auto) 8.1 %; Mean Corpuscular Hemoglobin 30.8 pg (25-34); Mean Corpuscular Hgb Conc 33.3 g/dL (32-36); Mean Corpuscular Volume 92.4 fL (80-100); Mean Platelet Volume 10.5 fL (7.4-10.4); Monocytes # (auto) 0.35 K/uL (0.11-0.59); Monocytes % (auto) 5.2 %; Neutrophils # (auto) 5.76 K/uL (1.4-6.5); Neutrophils % (auto) 86.2 %; Platelet Count 175 K/uL (130-400); RDW Coefficient of Variation 12.3 % (11.5-14.5); RDW Standard Deviation 41.6 fL (36.4-46.3); Red Blood Count 3.28 M/uL (4.2-5.4); White Blood Count 6.69 K/uL (4.8-10.8)
--- NOTE | 2020-12-30 08:09 | Obstetrical Progress Note ---
Date of Service December 30, 2020 Assessment & Plan (1) delivery delivered: c/sec day #1 pt doing well continue day #1 care Results & Data ([facility]) Vital Signs (Past 12 Hours) Vital Signs Temp Pulse Resp BP Pulse Ox 12/30/20 03:45 36.7 C 99 H 18 108/70 99 12/30/20 01:30 18 98 12/30/20 00:54 18 98 12/29/20 23:30 37.1 C 95 H 18 98/61 L 98 12/29/20 22:00 18 98 12/29/20 21:00 18 98 12/29/20 20:15 18 98
[2020-12-30] MEDS: SIMETHICONE 80 MG CHEW PO SCH ×4 (08:27→21:33)
[2020-12-30] MEDS: DOCUSATE SODIUM 100 MG CAP PO SCH ×2 (08:27→21:33)
[2020-12-30] MEDS: PRENATAL VITAMIN 1 TAB PO SCH (08:27)
[2020-12-30] MEDS: FERROUS SULFATE 325 MG TAB PO SCH (08:27)
--- NOTE | 2020-12-30 09:40 | Anesthesiology Progress Note ---
Date of Service December 30, 2020 Anesthesia Post Procedure Vital Signs Vital Signs: Temp Pulse Pulse Resp BP BP Pulse Ox 12/30/20 03:45 36.7 C 99 H 18 108/70 99 12/30/20 01:30 18 98 12/30/20 00:54 18 98 12/29/20 23:30 37.1 C 95 H 18 98/61 L 98 12/29/20 22:00 18 98 12/29/20 21:00 18 98 12/29/20 20:15 18 98 12/29/20 19:45 36.7 C 82 18 110/70 98 12/29/20 18:04 18 99 12/29/20 17:04 18 98 12/29/20 16:23 36.6 C 76 18 104/70 97 12/29/20 16:03 18 99 12/29/20 15:03 18 99 12/29/20 14:17 12/29/20 14:03 18 99 12/29/20 13:02 18 99 12/29/20 13:00 36.5 C 72 18 97 12/29/20 12:00 18 98 12/29/20 11:00 18 99 12/29/20 10:54 66 100 12/29/20 10:49 72 100 12/29/20 10:44 72 100 12/29/20 10:39 73 100 12/29/20 10:34 72 100 12/29/20 10:32 73 120/72 12/29/20 10:29 70 100 12/29/20 10:24 68 100 12/29/20 10:23 67 123/72 12/29/20 10:19 71 100 12/29/20 10:14 67 100 12/29/20 10:09 69 100 12/29/20 10:04 69 100 12/29/20 10:03 36.4 C L 66 18 111/68 12/29/20 09:59 70 100 12/29/20 09:54 70 100 12/29/20 09:53 67 114/70 12/29/20 09:49 65 100 12/29/20 09:44 66 100 12/29/20 09:43 65 111/66 Pulse Ox 12/30/20 03:45 12/30/20 01:30 12/30/20 00:54 12/29/20 23:30 12/29/20 22:00 12/29/20 21:00 12/29/20 20:15 12/29/20 19:45 12/29/20 18:04 12/29/20 17:04 12/29/20 16:23 12/29/20 16:03 12/29/20 15:03 12/29/20 14:17 98 12/29/20 14:03 12/29/20 13:02 12/29/20 13:00 12/29/20 12:00 12/29/20 11:00 12/29/20 10:54 12/29/20 10:49 12/29/20 10:44 12/29/20 10:39 12/29/20 10:34 12/29/20 10:32 12/29/20 10:29 12/29/20 10:24 12/29/20 10:23 12/29/20 10:19 12/29/20 10:14 12/29/20 10:09 12/29/20 10:04 12/29/20 10:03 12/29/20 09:59 12/29/20 09:54 12/29/20 09:53 12/29/20 09:49 12/29/20 09:44 12/29/20 09:43 Pain Intensity Bilateral Lower Abdomen: Pain Intensity: 2 Transfer of Care Handoff Completed per policy Notes Mental Status: alert / awake / arousable Patient Amnestic to Procedure: Yes Nausea / Vomiting: adequately controlled Pain: adequately controlled Airway Patency, RR, SpO2: stable & adequate BP & HR: stable & adequate Hydration State: stable & adequate Neuraxial Anesthesia: was administered and sensory block resolved Anesthetic Complications: no major complications apparent and Pt Satisfied with anesthetic care
[2020-12-30] MEDS ORDERED: bisacodyL 5 MG TABEC PO SCH (20:00)
[2020-12-31] MEDS: IBUPROFEN 600 MG TAB PO PRN ×2 (04:51→09:34)
[2020-12-31] MEDS: oxyCODONE/ACETAMINOPHEN 5mg/325mg TAB PO PRN ×2 (04:51→09:34)
[2020-12-31 06:34] LABS: Hematocrit (blood only) 28.9 % (37-47); Hemoglobin 9.6 g/dL (12.0-16.0)
[2020-12-31] MEDS: DOCUSATE SODIUM 100 MG CAP PO SCH (07:53)
[2020-12-31] MEDS: PRENATAL VITAMIN 1 TAB PO SCH (07:53)
[2020-12-31] MEDS: FERROUS SULFATE 325 MG TAB PO SCH (07:53)
[2020-12-31] MEDS: SIMETHICONE 80 MG CHEW PO SCH (07:53)
[2020-12-31] MEDS ORDERED: bisacodyL 10 MG SUPP PR PRN (08:15)
--- NOTE | 2020-12-31 09:48 | Obstetrical Progress Note ---
Date of Service December 31, 2020 Assessment & Plan (1) delivery delivered: discharged Subjective Ambulation: ambulating normally Voiding: no voiding problems Passing Gas:: Yes Diet Tolerance:: regular diet Lochia:: Small doing well. wants to go home Physical Exam Constitutional WD/WN, vitals as above comfortable Gastrointestinal (Abdomen) normal bowel sounds, soft, nontender, no hepatosplenomegaly incision c/d/i abdomen soft and non-tender for d/c Skin no rashes, warm and dry Results & Data ([facility]) Vital Signs (Past 12 Hours) Vital Signs Temp Pulse Resp BP 12/30/20 23:05 36.5 C 76 18 93/58 L Laboratory Results Laboratory Results - last 72 hr 12/29/20 12/29/20 12/29/20 06:08 06:08 07:07 WBC 10.38 RBC 4.14 L Hgb 12.9 Hct 37.4 MCV 90.3 MCH 31.2 MCHC 34.5 RDW Std Deviation 39.3 RDW Coeff of Heide 12.1 Plt Count 241 MPV 10.6 H Immature Gran % (Auto) 0.4 Neut % (Auto) 78.5 Lymph % (Auto) 14.6 Phillips % (Auto) 6.2 Eos % (Auto) 0.2 Baso % (Auto) 0.1 Neut # (Auto) 8.15 H Lymph # (Auto) 1.52 Phillips # (Auto) 0.64 H Eos # (Auto) 0.02 Baso # (Auto) 0.01 Immature Gran # (Auto) 0.04 H Cord ABG pH 7.48 H Cord ABG pCO2 38 L Cord ABG pO2 123 H Cord ABG HCO3 28 Cord ABG Base Excess 4.2 H Cord ABG O2 Sat < 60.0 Cord VBG pH Cord VBG pCO2 Cord VBG pO2 Cord VBG HCO3 Cord VBG Base Excess Cord VBG O2 Sat Barometric Pressure 731.3 Blood Gas Comments INFANT A Blood Type O Positive Antibody Screen NEGATIVE 12/29/20 12/30/20 12/31/20 07:07 06:09 06:18 WBC 6.69 RBC 3.28 L Hgb 10.1 L 9.6 L Hct 30.3 L 28.9 L MCV 92.4 MCH 30.8 MCHC 33.3 RDW Std Deviation 41.6 RDW Coeff of Heide 12.3 Plt Count 175 MPV 10.5 H Immature Gran % (Auto) 0.4 Neut % (Auto) 86.2 Lymph % (Auto) 8.1 Phillips % (Auto) 5.2 Eos % (Auto) 0.1 Baso % (Auto) 0.0 Neut # (Auto) 5.76 Lymph # (Auto) 0.54 L Phillips # (Auto) 0.35 Eos # (Auto) 0.01 Baso # (Auto) 0.00 Immature Gran # (Auto) 0.03 H Cord ABG pH Cord ABG pCO2 Cord ABG pO2 Cord ABG HCO3 Cord ABG Base Excess Cord ABG O2 Sat Cord VBG pH Cancelled Cord VBG pCO2 Cancelled Cord VBG pO2 Cancelled Cord VBG HCO3 Cancelled Cord VBG Base Excess Cancelled Cord VBG O2 Sat Cancelled Barometric Pressure Cancelled Blood Gas Comments Cancelled Blood Type Antibody Screen
--- NOTE | 2021-01-02 14:13 | Discharge Summary (DS) ---
DATE OF ADMISSION: 12/29/2020 DATE OF DISCHARGE: 12/31/2020 DETAILS OF ADMISSION: The patient is a 30-year-old -0-0-2, at 39 weeks of gestation, who presen madai to labor and delivery with spontaneous rupture of membranes and in active labor and breech presen tation. After informed consent was signed, she was taken to the OR for delivery of breech via primary . She had surgery on the same day, delivered a viable female in breech pres entation, Apgars were 8/9. Her surgery was uncomplicated. See dictated OP note for details. On pos top period, the patient was doing well, vital signs stable, afebrile. Urine output was good. On pos top day #1, the patient was doing well, vital signs stable, afebrile. Her urine output was adequate. Her Moore was discontinued. She was advanced to regular diet. On postop day #2, the patient was do ing well, vital signs stable, afebrile, passing gas, eating regular diet, ambulating. Her physical ex am was unremarkable. Incision was clean, dry and intact. Abdomen was soft, nontender, nondistended. Fundus was firm. Bleeding was minimal. Her postop H and H was 10.1/30.3 and on postop day #2, it was 9.6/28.9. Her discharge instructions were given. Prescriptions were written for pain. She is to be seen in the office in a week. All questions were answered. Job ID: [id number]
== END 2020-12-31 11:35 | disposition home or self-care (01) | DRG 788 ==
LOC: 4S1 05:19 → EDSTATUS 08:15 → 4S2 11:45